=== PATIENT | male | born 1945 | race Caucasian/White ===

== ENCOUNTER 2020-10-09 08:59 | Day surgery (SDC) | payer MEDICARE, SELFPAY ==
[2020-10-05 12:05] VITALS: BMI 35.2
[2020-10-09] VITALS (12 sets, daily range): BP systolic 103–152; BP diastolic 64–87; PULSE 60–78; RESP 11–17; TEMP 36.1–36.5; O2SAT 92–98; BMI 35.2
[2020-10-09 09:33] LABS: COVID19 -Nasal RAPID Negative (Negative)
[2020-10-09] MEDS: LACTATED RINGERS 1,000 ML 100 ML IV (10:41)
--- NOTE | 2020-10-09 11:13 | PM.PREOP ---
Pre-operative Note Interval Note History & Physical reviewed/Exam performed by Physician: Yes Changes to H&P: No
[2020-10-09] MEDS: CLINDAMYCIN 900 MG/50 ML PIGGYBACK 50 MG IV (11:25)
--- NOTE | 2020-10-09 11:46 | SUR.OPER ---
Supine on padded OR bed, head on pillow, arms secured on padded arm boards at <90 degrees abduction, legs uncrossed, safety belt at thigh, tape over blanket over lower legs.
[2020-10-09] MEDS: BUPIVACAINE 0.5% (PF) VIAL 30 ML INJ (11:49)
--- NOTE | 2020-10-09 12:29 | PM.OP.1 ---
Operative Date/Time/Diagnoses Date of procedure: 10/09/20 Time of procedure: 12:29 Pre-op diagnosis: umbilical hernia Post-op diagnosis: same Procedure & Clinicians Procedure: open umbilical hernia repair without mesh Same procedure as scheduled: Yes Indications: reducible umbilical hernia Surgeon: Sg Vasquez Click Yes if Unassisted: Yes Anesthesia Type: General Operative Notes Findings: 1 cm fascial defect containing omentum Specimen(s): none sent Estimated Blood Loss (mL): 20 Procedure in detail: Patient was brought to the operating room placed supine on the table. Bilateral lower extremity compression devices were applied. General anesthesia was induced and they were intubated with an LMA. They received clindamycin prior to skin incision. They were prepped and draped in sterile fashion. A time-out was performed. A curvilinear incision was made inferior to the umbilicus. The subcutaneous tissues were divided. The umbilical hernia was identified and the hernia sac was dissected off the umbilical skin and circumferentially off of the fascia defect. The hernia sac contained viable omentum. The omentum was reduced back into the abdomen. Using blunt dissection I carefully carefully freed the hernia sac from beneath the fascia defect. The fascia defect was 1.0 cm in maximal diameter and therefore I proceeded with a primary closure without the use of mesh. The fascia edges were freshened and then using interupted Ethibond suture the defect was then reapproximated without tension. The umbilical skin was tacked to the subcutaneous tissues using vicryl and then the remainder of the subcutaneous tissues were reapproximated using 3 0 Vicry,l skin closed with 4 0 Monocryl followed by the application of Dermabond and Steri-Strips. Sponge instrument count at the end of the operation was correct. Patient tolerated procedure well was extubated and transferred to postoperative care unit in stable condition. Complications: none Post-operative Disposition: same day surgery
[2020-10-09] MEDS: OXYCODONE/ACETAMINOPHEN 5/325 TABLET 1 TAB PO (12:57)
== END 2020-10-09 13:50 | disposition home or self-care (01) ==
PROVIDERS: PCP Family Medicine; Referring Provider Family Medicine; Visit Provider Surgery
PROC: (CPT 49585; principal; 2020-10-09 10:45)
DX: K42.9 Umbilical hernia without obstruction or gangrene (principal); E66.9 Obesity, unspecified; Z95.0 Presence of cardiac pacemaker; R00.1 Bradycardia, unspecified; I10 Essential (primary) hypertension; E78.00 Pure hypercholesterolemia, unspecified; G47.30 Sleep apnea, unspecified; Z20.822 Contact with and (suspected) exposure to COVID-19
CPT/HCPCS: 49585; 87635; J1100; J1885; J2250; J2405; J2704; J3010

== ENCOUNTER → 2021-05-14 11:56 | Outpatient (CLI) | payer MEDICARE, SELFPAY ==
--- NOTE | 2021-05-14 | DI.NM.S_ITS ---
PROCEDURE: NM EARLENE PERF SPECT REST & STR Rest and exercise myocardial perfusion SPECT with gated imaging and ejection fraction RADIOPHARMACEUTICAL: 18.7 mCi Tc-99m sestamibi IV at rest and 26.7 mCi Tc-99m sestamibi IV at peak exercise. A two day-protocol was performed. INDICATIONS: Unspecified systolic (congestive) heart failure TECHNIQUE: Radiopharmaceutical was injected at peak stress test, and also at rest. SPECT images were obtained. SPECT myocardial perfusion images were displayed in short axis, horizontal long axis, and vertical long axis views. Gated images were reviewed using [employer] software. COMPARISON: None. CARDIAC STRESS: A standard Johnathan treadmill exercise tolerance test was performed by the patient under the supervision of an attending staff. The patient exercised for 5minutes and 8 seconds; functional aerobic impairment (RAYO) is +4%. Hemodynamic data: There is normal blood pressure and heart rate response to exercise stress. Patient achieved target heart rate at peak exercise. Symptoms: Patient denied chest pain during exercise. EKG: Resting ECG showed sinus rhythm with RBBB, LAFB, and non-specific T wave changes. No diagnostic EKG changes of ischemia with stress; frequent PVCs with exercise. FINDINGS: Raw data: There is good myocardial labeling by radiotracer. No significant motion artifacts. Daie-jq-irmqm ratio is 0.25 (normal is less than 0.38 for sestamibi tracer, and less than 0.50 for thallium tracer). Left ventricle function: Gated images demonstrate normal left ventricle wall thickening. No segmental wall motion abnormality. No transient ischemic dilation; TID is 0.03 (normal less than 1.3). The left ventricle resting end-diastolic volume is 126 mL. Left ventricle stress ejection fraction is 67%; normal values are above 45%. Myocardial perfusion: There is a severe inferior wall fixed defect that resolves with prone imaging, suggesting diaphragmatic attenuation artifact. No ischemia or infarction. IMPRESSION: Low risk, probably normal treadmill nuclear stress test 1) No perfusion evidence of ischemia or infarction. There is a severe inferior wall fixed defect that resolves with prone imaging, suggesting diaphragmatic attenuation artifact. 2) Normal left ventricular size, wall motion, and systolic function (EF post stress 67%). 3) No ECG evidence of ischemia. 4) No angina during the study. 5) Average exercise capacity (RAYO +4%). Target heart rate achieved. Appropriate BP response to exercise. 6) No prior nuclear stress test available for comparison. Dictated by: Kendall Osuna MD on 05/15/2021 at 16:22 Approved by: Kendall Osuna MD on 05/15/2021 at 16:27
[2021-05-14 14:13] LABS: COVID19 -Nasal RAPID Negative (Negative)
== END ==
PROVIDERS: Family Provider Family Medicine; PCP Family Medicine; Referring Provider Internal Medicine Cardiovascular Disease; Visit Provider Internal Medicine Cardiovascular Disease
DX: I47.2 Ventricular tachycardia; I50.22 Chronic systolic (congestive) heart failure; R06.02 Shortness of breath; Z20.822 Contact with and (suspected) exposure to COVID-19
CPT/HCPCS: 78452; 87635; 93017; A9502

== ENCOUNTER → 2021-08-05 09:07 | Outpatient (CLI) | payer MEDICARE, SELFPAY ==
[2021-08-06 22:07] LABS: COVID19 - ORCAS (NP or Nasal) Negative (Negative)
== END ==
PROVIDERS: Family Provider Family Medicine; PCP Family Medicine; Visit Provider Physician Assistant
DX: Z20.822 Contact with and (suspected) exposure to COVID-19 (principal)
CPT/HCPCS: C9803; U0003